=== PATIENT | female | born 1950 | race Caucasian/White ===

== ENCOUNTER 2025-09-04 10:01 | Emergency (ER) | payer BC, SELFPAY ==
[2025-09-04 10:21] LABS: Hematocrit 35.9 % (37.0-47.0); Hemoglobin 12.4 g/dL (12.0-16.0); Mean Corp Hgb Conc. 34.5 g/dL (33.0-37.0); Mean Corpuscular Volume 92.1 fL (81.0-99.0); Nucleated Red Blood Cells % 0 %; Platelet Count 350 10^3/uL (130-400); Red Cell Dist. Width 13.3 % (11.5-14.5)
[2025-09-04 10:37] LABS: ALT (SGPT) 31 U/L (0-35); AST (SGOT) 32 U/L (14-36); Albumin 4.4 g/dl (3.5-5.0); Alkaline Phosphatase 84 U/L (38-126); Blood Urea Nitrogen 19 mg/dl (7-17); Calcium 9.8 mg/dl (8.4-10.2); Carbon Dioxide 24 mmol/L (22-30); Chloride 103 mmol/L (98-107); Glucose 153 mg/dl (70-99); Potassium 4.4 mmol/L (3.5-5.1); Sodium 134 mmol/L (135-145); Total Protein 7.1 g/dl (6.3-8.2); eGFR > 60.00
--- NOTE | 2025-09-04 12:05 | ED.GENMED ---
History of Present Illness
General
Chief Complaint: Dizziness
Source: patient
Exam Limitations: none
Time Seen by Provider: 09/04/25 12:04
History of Present Illness
History of Present Illness:
75-year-old female describing sudden onset of spinning vertigo while driving. Associated with nausea and vomiting. No other neurologic symptoms. No headache no visual issues no double vision no numbness tingling or weakness. She has a history of
hearing loss and tinnitus. No trauma. No neck pain.
Past History
Past History
ED Past Medical History: Hypothyroidism
ED Past Surgical History: Gynecological
Review of Systems
Review of Systems
All Other Systems: Not applicable
Respiratory: Reports no symptoms
Cardiac: Reports no symptoms
Neurological: Denies headache, weakness or numbness
Phy Exam
Physical Exam
Physical Exam:
GENERAL: Alert and oriented in no apparent distress
EYE: Orbits normal. Extraocular muscles intact. No lateral rotatory or vertical nystagmus
NECK: Supple, no carotid bruit
ENT: Pharynx without erythema
CARDIAC: Regular rate and rhythm without any obvious murmurs.
LUNGS: Clear breath sounds,normal
ABDOMEN: Soft, without focal tenderness or distention
NEUROLOGICAL: Alert and oriented , cranial nerves II through XII intact. Speech normal. Nudbyr-ok-hsyx normal. No drift. Idjy-ce-styh normal. Patient has a right foot drop which is chronic
SKIN: Warm and dry, no rash or lesion, no discoloration, skin intact.
MUSCULOSKELETAL: No edema,no deformity.Good color
PSYCH: Normal and appropriate interaction.
Course
Orders/Labs/Results
Orders:
Orders
09/04/25 10:06
Electrocardiogram (*1) Urgent
Reason for Study: Vertigo / Dizzy
EKG- Treatment ONCE
09/04/25 10:13
Complete Blood Count/With Diff Urgent
Comprehensive Metabolic Panel Urgent
09/04/25 12:23
CT Head W/o Iv Contrast Urgent
Comment:
Reason For Exam: Sudden disequilibrium
IV Insert/Care/Rem.- Treatment PRN
0.9% Sodium Chloride 500 ml [Nss] 500 ml IV BOLUS
Meclizine [Antivert] 25 mg PO NOW STA
09/04/25 12:24
CT Neck Angio W/wo Iv Contrast Urgent
Comment:
Reason For Exam: Sudden disequilibrium
Abnormal Lab Results
09/04/25
10:13
RBC 3.90 L 10^6/uL
(4.20-5.40)
Hct 35.9 L %
(37.0-47.0)
MCH 31.8 H pg
(27.0-31.0)
Absolute Monos (auto) 0.7 H 10^3/uL
(0.1-0.6)
Lymphocytes % 19.5 L %
(20.5-51.1)
Eosinophils % 6.7 H %
(0-6)
Sodium 134 L mmol/L
(135-145)
BUN 19 H mg/dl
(7-17)
Glucose 153 H mg/dl
(70-99)
09/04/25 10:13
09/04/25 10:13
Vital Signs
Initial and Last Documented VS:
Initial Vital Signs
Temp Pulse Resp Pulse Ox
98.0 F 80 16 98
09/04/25 10:03 09/04/25 10:03 09/04/25 10:03 09/04/25 10:03
Last Documented Vital Signs
Temp Pulse Resp BP Pulse Ox
98.0 F 82 17 133/74 97
09/04/25 10:03 09/04/25 14:00 09/04/25 14:00 09/04/25 14:00 09/04/25 14:00
MDM/Problems Addressed
Differential Diagnosis Includes:
Patient is describing inner ear issues. Highly unlikely to be central. No nor other neurologic symptoms. Very positional in nature. Nontoxic. Able to ambulate although slightly wide-based. Negative Romberg. Will get head CT and CT angio of
neck to rule out vertebral or basilar artery dissection or thrombus. Symptomatic treatment. And reevaluate.
*Radiology
Radiology exam reviewed: radiology read reviewed (No acute findings. Prominent pulmonary artery. Negative head CT)
*Pulse Oximetry
SaO2: 98
Oxygen Mode of Delivery: Room air
Patient hypoxic: no
*EKG
Interpreted by ED Provider?: Yes
Interpretation: normal
Comparison EKG: no comparison EKG present
Heart Rate: 69
Rate: normal
Rhythm: sinus
[place]: normal axis
Interval: normal interval
QRS Pattern: normal QRS
Ischemia: no ischemia
*Critical Care Note
Total Time (30-74mins, 75-104mins- exclusive of procedures): Not Applicable
Update Note
Update Note:
Patient ambulated well without issues. Doing much better. Stable for discharge. Nothing to support a central etiology. Given copy of CT report for pulmonary hypertension.
ED Attending Note
-
Portions of this chart may have been created with voice recognition software.� Occasional wrong word or��sound alike� substitutions may have occurred due to the inherent limitations of voice recognition software.
Discharge Plan
Departure
Patient Disposition: Home (Routine Discharge)
Date of Disposition: 09/04/25
Time of Disposition: 14:35
Patient with high blood pressure during this ER visit?: Yes
Discharge Problem:
Vertigo, Mild hyperglycemia, Prominent pulmonary artery
Instructions: Vertigo (a Type of Dizziness) (DC), BLOOD PRESSURE
Prescriptions:
New
meclizine 25 mg tablet
25 mg PO TID PRN (Reason: dizziness) Qty: 14 0RF
Referrals:
Yulia Spaulding MD [Family Provider, Internal Medicine] - Follow up in 2-3 days
Activity Restrictions/Additional Instructions:
Follow-up the mild blood sugar elevation and your CAT scan finding with your primary physician
Return immediately with any acute neurologic symptoms unusual headache worsening vertigo gait issues etc.
The prescription was sent to your pharmacy
Interventions
Interventions:
*Risk Screen - Suicide Last Done: 09/04/25 10:03
*General Assessment Last Done: 09/04/25 10:03
*Neglect/Abuse Screening Last Done: 09/04/25 10:03
*ED COVID-19 Vaccine History Last Done: 09/04/25 10:03
*ED Influenza Vaccine History Last Done: 09/04/25 10:03
[facility] Risk Assessment Tool Last Done: 09/04/25 13:10
ED- Neurological Assessment Last Done: 09/04/25 12:15
ED- Cardiac Assessment Last Done: 09/04/25 12:15
Discharge Date and Time
Print Language: SAUDI ARABIAN
[2025-09-04 12:12] VITALS: BP 143/70
[2025-09-04 12:14] VITALS: BMI 24.7
[2025-09-04] MEDS: ANTIVERT 25 MG PO (12:30)
[2025-09-04] MEDS: NSS 500 IV (12:33)
[2025-09-04 13:03] VITALS: BP 130/68
[2025-09-04 14:00] VITALS: BP 133/74
== END 2025-09-04 15:00 | disposition home or self-care (01) ==
LOC: EMR 10:01
PROVIDERS: EMERGENCY PHYSICIAN Emergency Medicine; FAMILY PHYSICIAN Internal Medicine
DX: R42 Dizziness and giddiness (principal); R73.9 Hyperglycemia, unspecified; I27.20 Pulmonary hypertension, unspecified; E03.9 Hypothyroidism, unspecified
CPT/HCPCS: 96360; 96361; 99284; 70450; 70498; 80053; 85025; 93005; Q9967